=== PATIENT | male | born 1995 | race Caucasian/White ===

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

== ENCOUNTER 2018-10-14 21:18 | Inpatient (IN) | payer MEDICAID ==
[~2018-10-14] VITALS: Ht 182.9 cm; Wt 68.5 kg
[2018-10-14 22:13] LABS: BASOPHILS % (AUTO) 0.4 % (0.0-2.0); EOSINOPHILS % (AUTO) 0.5 % (1.0-6.0); HEMATOCRIT 49.4 % (41-53); HEMOGLOBIN 16.2 g/dL (13.5-17.5); LYMPHOCYTES # (AUTO) 2.2 K/uL (1.0-4.8); MEAN CORPUSCULAR HEMOGLOBIN 31.1 pg (26.0-34.0); MEAN CORPUSCULAR HGB CONC 32.8 G/dL (31.0-37.0); MEAN CORPUSCULAR VOLUME 95 fL (80-100); MONOCYTES % (AUTO) 8.8 % (2.0-9.0); NEUTROPHILS # (AUTO) 7.7 K/uL (1.8-7.7); NEUTROPHILS % (AUTO) 70.3 % (40.0-70.0); PLATELET COUNT (AUTO) 199 K/uL (150-450); RED CELL DISTRIBUTION WIDTH 13.3 % (11.5-14.5)
[2018-10-14 22:27] LABS: ANION GAP 14 mmol/L (8-16); CARBON DIOXIDE 25 mmol/L (22-29); CHLORIDE 100 mmol/L (98-107); CREATININE 1.38 mg/dL (0.60-1.30); GLOMERULAR FILTR. RATE CALC > 60 mL/min (>60); GLUCOSE,RANDOM 87 mg/dL (70-110); POTASSIUM 3.9 mmol/L (3.5-5.1); SODIUM SERUM 139 mmol/L (136-145); UREA NITROGEN, BLOOD 20 mg/dL (7-18)
[2018-10-14 22:33] LABS: ALANINE AMINOTRANSFERASE 22 U/L (12-78); ALBUMIN 4.8 g/dL (3.4-5.0); ALKALINE PHOSPHATASE 59 U/L (46-116); ASPARTATE AMINOTRANSFERASE 28 U/L (15-37); BILIRUBIN,TOTAL 1.2 mg/dL (0.1-1.0)
[2018-10-14 23:16] LABS: AMPHET/METH SCREEN,URINE POSITIVE (NEGATIVE); BARBITURATE SCREEN, URINE NEGATIVE (NEGATIVE); BENZODIAZEPINES SCREEN,URINE NEGATIVE (NEGATIVE); CANNABINOID SCREEN,URINE POSITIVE (NEGATIVE); COCAINE SCREEN,URINE POSITIVE (NEGATIVE); METHADONE SCREEN, URINE NEGATIVE (NEGATIVE); OPIATE SCREEN,URINE NEGATIVE (NEGATIVE); PHENCYCLIDINE SCREEN,URINE NEGATIVE (NEGATIVE)
[2018-10-15 03:29] LABS: APPEARANCE,URINE CLOUDY (CLEAR); GLUCOSE, URINE (UA) NEGATIVE (NEGATIVE); KETONES,URINE >=80 mg/dL (NEGATIVE); LEUKOCYTE ESTERASE ,URINE NEGATIVE (NEGATIVE); NITRATE,URINE NEGATIVE (NEGATIVE); OCCULT BLOOD,URINE NEGATIVE (NEGATIVE); PROTEIN,URINE SEE CONFIRM (NEGATIVE); UROBILINOGEN,URINE 0.2 mg/dL (<=1.0)
[2018-10-15 03:31] LABS: BILIRUBIN,URINE PRELIM. POSITIVE (NEGATIVE)
[2018-10-15 03:35] LABS: SULFOSALICYLIC ACID,URINE 1+ (Negative)
[2018-10-15 03:36] LABS: BACTERIA,URINE Rare /HPF (None Seen); MUCUS,URINE Few LPF (None Seen); RBC,URINE 0-2 /HPF (0-2); SQUAMOUS EPITHELIAL CELL,UR Rare /LPF (None Seen); WBC,URINE 0-2 /HPF (0-5)
[2018-10-15 05:42] VITALS: BP 129/78
[2018-10-15] MEDS: LORazepam 2 MG TABLET PO PRN ×2 (07:10→21:13)
[2018-10-15 08:38] VITALS: BP 118/90
[2018-10-15] MEDS: HALOPERIDOL 5 MG TABLET PO PRN (09:27)
[2018-10-15 16:13] VITALS: BP 110/68
[2018-10-15] MEDS ORDERED: OMEPRAZOLE 20 MG CAPSULE PO PRN (22:15)
[2018-10-15] MEDS ORDERED: ALBUTEROL SULFATE HFA 90 MCG/PUFF 8 GM INHALER IH PRN (22:15)
[2018-10-15] MEDS ORDERED: PETROLATUM,WHITE 28 GM JELLY TP PRN (22:15)
[2018-10-15] MEDS ORDERED: MAG HYDROX/AL HYDROX/SIMETH ES 30 ML SUSPENSION UDCUP PO PRN (22:15)
[2018-10-15] MEDS ORDERED: BENZOCAINE/MENTHOL LOZENGE MM PRN (22:15)
[2018-10-15] MEDS ORDERED: ONDANSETRON HCL 4 MG TABLET PO PRN (22:15)
[2018-10-15] MEDS ORDERED: BACITRACIN 28.4 GM OINTMENT TP PRN (22:15)
[2018-10-15] MEDS ORDERED: ACETAMINOPHEN 325 MG TABLET PO PRN (22:15)
[2018-10-15] MEDS ORDERED: DOCUSATE SODIUM 100 MG CAPSULE PO PRN (22:15)
[2018-10-15] MEDS ORDERED: LOPERAMIDE HCL 2 MG CAPSULE PO PRN (22:15)
[2018-10-15] MEDS ORDERED: IBUPROFEN 600 MG TABLET PO PRN (22:15)
[2018-10-15] MEDS ORDERED: CloNIDine HCL 0.1 MG TABLET PO PRN (22:15)
[2018-10-15] MEDS ORDERED: MAGNESIUM HYDROXIDE SUSPENSION 30 ML UDCUP PO PRN (22:15)
[2018-10-16 03:40] VITALS: BP 112/70
[2018-10-16] MEDS: ZOLPIDEM TARTRATE 10 MG TABLET PO PRN (03:44)
[2018-10-16 08:31] LABS: CHOL/HDL RATIO 3.3 (4.2-7.3)
[2018-10-16 08:32] VITALS: BP 100/60
[2018-10-16] MEDS: DIVALPROEX SODIUM 500 MG DR TABLET PO SCH ×3 (08:46→16:39)
[2018-10-16] MEDS: RisperiDONE 1 MG TABLET PO SCH ×3 (08:46→16:39)
[2018-10-16] MEDS: LORazepam 2 MG TABLET PO PRN ×2 (09:04→16:39)
[2018-10-16 16:35] VITALS: BP 116/74
[2018-10-16] MEDS: HALOPERIDOL 5 MG TABLET PO PRN (16:39)
[2018-10-17 00:17] VITALS: BP 126/78
[2018-10-17] MEDS: LORazepam 2 MG TABLET PO PRN ×3 (06:37→16:50)
[2018-10-17 08:35] VITALS: BP 101/60
[2018-10-17] MEDS: RisperiDONE 1 MG TABLET PO SCH ×2 (08:57→16:01)
[2018-10-17] MEDS: DIVALPROEX SODIUM 500 MG DR TABLET PO SCH ×2 (08:57→16:00)
[2018-10-17 16:00] VITALS: BP 119/65
[2018-10-18 06:20] VITALS: BP 107/69
[2018-10-18] MEDS: DIVALPROEX SODIUM 500 MG DR TABLET PO SCH ×2 (08:07→16:34)
[2018-10-18] MEDS: LORazepam 2 MG TABLET PO PRN ×2 (08:07→12:25)
[2018-10-18] MEDS: RisperiDONE 1 MG TABLET PO SCH ×2 (08:07→16:34)
[2018-10-18 08:39] VITALS: BP 109/61
[2018-10-18] MEDS: NICOTINE 21 MG/24 HOUR PATCH TD PRN (16:34)
[2018-10-18 17:03] VITALS: BP 122/75
[2018-10-18] MEDS: LORazepam 1 MG TABLET PO PRN (18:29)
[2018-10-18] MEDS: ZOLPIDEM TARTRATE 10 MG TABLET PO PRN (21:15)
[2018-10-19 04:55] VITALS: BP 111/70
[2018-10-19] MEDS: LORazepam 1 MG TABLET PO PRN ×2 (05:02→10:59)
[2018-10-19] MEDS: RisperiDONE 1 MG TABLET PO SCH (08:08)
[2018-10-19] MEDS: DIVALPROEX SODIUM 500 MG DR TABLET PO SCH (08:08)
[2018-10-19 08:18] LABS: ANION GAP 6 mmol/L (8-16); CALCIUM, TOTAL 9.4 mg/dL (8.8-10.5); CARBON DIOXIDE 29 mmol/L (22-29); CHLORIDE 105 mmol/L (98-107); CREATININE 1.03 mg/dL (0.60-1.30); GLOMERULAR FILTR. RATE CALC > 60 mL/min (>60); GLUCOSE,RANDOM 118 mg/dL (70-110); POTASSIUM 4.1 mmol/L (3.5-5.1); SODIUM SERUM 140 mmol/L (136-145); UREA NITROGEN, BLOOD 12 mg/dL (7-18)
[2018-10-19] MEDS: NICOTINE 21 MG/24 HOUR PATCH TD PRN (08:19)
[2018-10-19 08:41] VITALS: BP 139/72
[2018-10-19] MEDS ORDERED: RISP1 PO (11:10)
[2018-10-19] MEDS ORDERED: DIVA-78 PO (11:10)
== END 2018-10-19 13:48 | disposition home or self-care (01) | DRG 753 ==
LOC: EMS 21:23 → B2S 10-15 02:00
PROVIDERS: ADMIT Psychiatry & Neurology Psychiatry; ATTEND Psychiatry & Neurology Psychiatry
DX: F31.9 Bipolar disorder, unspecified (principal); F25.9 Schizoaffective disorder, unspecified; R45.851 Suicidal ideations; F41.9 Anxiety disorder, unspecified; G47.00 Insomnia, unspecified; N28.9 Disorder of kidney and ureter, unspecified; F17.210 Nicotine dependence, cigarettes, uncomplicated; F15.10 Other stimulant abuse, uncomplicated; F14.10 Cocaine abuse, uncomplicated; Z59.0 Homelessness
CPT/HCPCS: G0480

== ENCOUNTER 2018-10-30 19:13 | Inpatient (IN) | payer MEDICAID ==
[~2018-10-30] VITALS: Ht 182.9 cm; Wt 63.0 kg
[~2018-10-30 19:13] MED LIST: DIVA-78 PO; RISP1 PO
[2018-10-30 20:02] LABS: BASOPHILS % (AUTO) 0.2 % (0.0-2.0); EOSINOPHILS % (AUTO) 0.2 % (1.0-6.0); HEMATOCRIT 49.4 % (41-53); HEMOGLOBIN 16.3 g/dL (13.5-17.5); LYMPHOCYTES # (AUTO) 2.2 K/uL (1.0-4.8); LYMPHOCYTES % (AUTO) 16.7 % (22.0-44.0); MEAN CORPUSCULAR HEMOGLOBIN 30.5 pg (26.0-34.0); MEAN CORPUSCULAR VOLUME 92 fL (80-100); MONOCYTES # (AUTO) 1.2 K/uL (0.1-1.0); MONOCYTES % (AUTO) 8.9 % (2.0-9.0); NEUTROPHILS # (AUTO) 9.9 K/uL (1.8-7.7); PLATELET COUNT (AUTO) 224 K/uL (150-450); RED BLOOD CELL COUNT(AUTO) 5.35 MIL/uL (4.50-5.90); RED CELL DISTRIBUTION WIDTH 12.8 % (11.5-14.5)
[2018-10-30 20:18] LABS: ANION GAP 15 mmol/L (8-16); CARBON DIOXIDE 25 mmol/L (22-29); CHLORIDE 102 mmol/L (98-107); CREATININE 1.37 mg/dL (0.60-1.30); GLOMERULAR FILTR. RATE CALC > 60 mL/min (>60); GLUCOSE,RANDOM 82 mg/dL (70-110); POTASSIUM 3.5 mmol/L (3.5-5.1); SODIUM SERUM 142 mmol/L (136-145); UREA NITROGEN, BLOOD 17 mg/dL (7-18)
[2018-10-30 20:23] LABS: ALANINE AMINOTRANSFERASE 16 U/L (12-78); ALBUMIN 4.5 g/dL (3.4-5.0); ALKALINE PHOSPHATASE 62 U/L (46-116); ASPARTATE AMINOTRANSFERASE 20 U/L (15-37); BILIRUBIN,TOTAL 0.5 mg/dL (0.1-1.0); TOTAL PROTEIN, SERUM 7.8 g/dL (6.4-8.2)
[2018-10-30 21:28] LABS: APPEARANCE,URINE TURBID (CLEAR); BILIRUBIN,URINE NEGATIVE (NEGATIVE); GLUCOSE, URINE (UA) NEGATIVE (NEGATIVE); KETONES,URINE 15 mg/dL (NEGATIVE); LEUKOCYTE ESTERASE ,URINE TRACE (NEGATIVE); NITRATE,URINE NEGATIVE (NEGATIVE); OCCULT BLOOD,URINE NEGATIVE (NEGATIVE); PROTEIN,URINE TRACE (NEGATIVE)
[2018-10-30 21:35] LABS: BACTERIA,URINE None Seen /HPF (None Seen); RBC,URINE None Seen /HPF (0-2)
[2018-10-30 21:36] LABS: AMORPHOUS SEDIMENT,UR Many /LPF (None Seen); SQUAMOUS EPITHELIAL CELL,UR Rare /LPF (None Seen)
[2018-10-31 01:07] LABS: AMPHET/METH SCREEN,URINE POSITIVE (NEGATIVE); BARBITURATE SCREEN, URINE NEGATIVE (NEGATIVE); BENZODIAZEPINES SCREEN,URINE NEGATIVE (NEGATIVE); CANNABINOID SCREEN,URINE POSITIVE (NEGATIVE); COCAINE SCREEN,URINE NEGATIVE (NEGATIVE); METHADONE SCREEN, URINE NEGATIVE (NEGATIVE); OPIATE SCREEN,URINE NEGATIVE (NEGATIVE)
[2018-10-31 01:22] LABS: PHENCYCLIDINE SCREEN,URINE NEGATIVE (NEGATIVE)
[2018-10-31] MEDS: HALOPERIDOL 5 MG TABLET PO PRN ×2 (03:45→17:01)
[2018-10-31] MEDS: LORazepam 2 MG TABLET PO PRN ×2 (03:45→17:01)
[2018-10-31 03:51] VITALS: BP 126/65
[2018-10-31 08:47] VITALS: BP 107/60
[2018-10-31] MEDS ORDERED: MAGNESIUM HYDROXIDE SUSPENSION 30 ML UDCUP PO PRN (11:45)
[2018-10-31] MEDS ORDERED: CloNIDine HCL 0.1 MG TABLET PO PRN (11:45)
[2018-10-31] MEDS ORDERED: ACETAMINOPHEN 325 MG TABLET PO PRN (11:45)
[2018-10-31] MEDS ORDERED: LOPERAMIDE HCL 2 MG CAPSULE PO PRN (11:45)
[2018-10-31] MEDS ORDERED: BACITRACIN 28.4 GM OINTMENT TP PRN (11:45)
[2018-10-31] MEDS ORDERED: PETROLATUM,WHITE 28 GM JELLY TP PRN (11:45)
[2018-10-31] MEDS ORDERED: OMEPRAZOLE 20 MG CAPSULE PO PRN (11:45)
[2018-10-31] MEDS ORDERED: BENZOCAINE/MENTHOL LOZENGE MM PRN (11:45)
[2018-10-31] MEDS ORDERED: MAG HYDROX/AL HYDROX/SIMETH ES 30 ML SUSPENSION UDCUP PO PRN (11:45)
[2018-10-31] MEDS ORDERED: IBUPROFEN 600 MG TABLET PO PRN (11:45)
[2018-10-31] MEDS ORDERED: ONDANSETRON HCL 4 MG TABLET PO PRN (11:45)
[2018-10-31] MEDS ORDERED: DOCUSATE SODIUM 100 MG CAPSULE PO PRN (11:45)
[2018-10-31] MEDS ORDERED: ALBUTEROL SULFATE HFA 90 MCG/PUFF 8 GM INHALER IH PRN (11:45)
[2018-10-31 16:00] VITALS: BP 105/63
[2018-10-31] MEDS: DIVALPROEX SODIUM 500 MG DR TABLET PO SCH (17:01)
[2018-10-31] MEDS: RisperiDONE 2 MG TABLET PO SCH (17:01)
[2018-11-01 03:50] VITALS: BP 108/68
[2018-11-01 07:41] LABS: CHOL/HDL RATIO 3.2 (4.2-7.3); FREE T4 (FREE THYROXINE) 1.47 ng/dL (0.76-1.46); THYROID STIMULATING HORMONE 0.77 uIU/mL (0.36-3.74)
[2018-11-01] MEDS: RisperiDONE 2 MG TABLET PO SCH ×2 (08:22→16:53)
[2018-11-01] MEDS: DIVALPROEX SODIUM 500 MG DR TABLET PO SCH ×2 (08:22→16:53)
[2018-11-01 09:49] VITALS: BP 114/69
[2018-11-01] MEDS: LORazepam 2 MG TABLET PO PRN ×2 (09:49→16:53)
[2018-11-01] MEDS: HALOPERIDOL 5 MG TABLET PO PRN ×2 (09:49→16:53)
[2018-11-01 16:10] VITALS: BP 116/72
[2018-11-02 06:41] VITALS: BP 124/76
[2018-11-02 08:27] VITALS: BP 112/60
[2018-11-02] MEDS: RisperiDONE 2 MG TABLET PO SCH ×2 (09:41→16:57)
[2018-11-02] MEDS: DIVALPROEX SODIUM 500 MG DR TABLET PO SCH ×2 (09:41→16:58)
[2018-11-02] MEDS: LORazepam 2 MG TABLET PO PRN ×2 (09:41→16:58)
[2018-11-02] MEDS ORDERED: *PATIENT'S OWN MED [ENTER DRUG, DOSE, FREQUENCY IN COMMENTS] CLINICAL ONE (14:00)
[2018-11-02 16:00] VITALS: BP 114/66
[2018-11-02] MEDS: HALOPERIDOL 5 MG TABLET PO PRN (16:58)
[2018-11-02] MEDS: ZOLPIDEM TARTRATE 10 MG TABLET PO PRN (20:54)
[2018-11-02] MEDS: [UNRECOGNIZED DRUG - OTHER] PO SCH (21:14)
[2018-11-03 06:43] VITALS: BP 110/63
[2018-11-03 08:07] VITALS: BP 117/55
[2018-11-03] MEDS: [UNRECOGNIZED DRUG - OTHER] PO SCH (08:26)
[2018-11-03] MEDS: RisperiDONE 2 MG TABLET PO SCH ×2 (08:26→16:07)
[2018-11-03] MEDS: DIVALPROEX SODIUM 500 MG DR TABLET PO SCH ×2 (08:26→16:07)
[2018-11-03] MEDS: LORazepam 2 MG TABLET PO PRN ×2 (16:07→20:13)
[2018-11-03] MEDS: HALOPERIDOL 5 MG TABLET PO PRN (16:08)
[2018-11-03 16:09] VITALS: BP 139/76
[2018-11-03] MEDS: ZOLPIDEM TARTRATE 10 MG TABLET PO PRN (20:13)
[2018-11-03] MEDS: NICOTINE 21 MG/24 HOUR PATCH TD SCH (21:22)
[2018-11-04 06:12] VITALS: BP 122/71
[2018-11-04 08:13] VITALS: BP 123/61
[2018-11-04] MEDS: RisperiDONE 2 MG TABLET PO SCH ×2 (08:23→16:51)
[2018-11-04] MEDS: [UNRECOGNIZED DRUG - OTHER] PO SCH (08:23)
[2018-11-04] MEDS: NICOTINE 21 MG/24 HOUR PATCH TD SCH (08:23)
[2018-11-04] MEDS: DIVALPROEX SODIUM 500 MG DR TABLET PO SCH ×2 (08:24→16:51)
[2018-11-04] MEDS: LORazepam 2 MG TABLET PO PRN ×2 (12:41→16:51)
[2018-11-04 16:00] VITALS: BP 107/65
[2018-11-04] MEDS: HALOPERIDOL 5 MG TABLET PO PRN (16:51)
[2018-11-05 06:07] VITALS: BP 114/73
[2018-11-05] MEDS: DIVALPROEX SODIUM 500 MG DR TABLET PO SCH ×2 (08:19→16:17)
[2018-11-05] MEDS: NICOTINE 21 MG/24 HOUR PATCH TD SCH (08:19)
[2018-11-05] MEDS: RisperiDONE 2 MG TABLET PO SCH ×2 (08:19→16:17)
[2018-11-05] MEDS: [UNRECOGNIZED DRUG - OTHER] PO SCH (08:20)
[2018-11-05] MEDS: LORazepam 2 MG TABLET PO PRN ×3 (10:53→20:43)
[2018-11-05] MEDS: ZOLPIDEM TARTRATE 10 MG TABLET PO PRN (20:43)
[2018-11-06 03:59] VITALS: BP 116/72
[2018-11-06] MEDS: LORazepam 2 MG TABLET PO PRN (04:01)
[2018-11-06] MEDS: [UNRECOGNIZED DRUG - OTHER] PO SCH (08:15)
[2018-11-06] MEDS: NICOTINE 21 MG/24 HOUR PATCH TD SCH (08:15)
[2018-11-06] MEDS: DIVALPROEX SODIUM 500 MG DR TABLET PO SCH (08:15)
[2018-11-06] MEDS: RisperiDONE 2 MG TABLET PO SCH (08:15)
[2018-11-06 08:32] VITALS: BP 127/87
[2018-11-06] MEDS ORDERED: RISP2 PO (13:57)
[2018-11-06] MEDS ORDERED: DIVA-78 PO (13:57)
[2018-11-06] MEDS ORDERED: BICT1TAB PO (13:57)
== END 2018-11-06 14:45 | disposition home or self-care (01) | DRG 754 ==
LOC: EMS 19:13 → B3A 10-31 01:00
PROVIDERS: ADMIT Psychiatry & Neurology Child & Adolescent Psychiatry; ATTEND Psychiatry & Neurology Psychiatry
DX: F32.9 Major depressive disorder, single episode, unspecified (principal); D72.829 Elevated white blood cell count, unspecified; F12.90 Cannabis use, unspecified, uncomplicated; F17.210 Nicotine dependence, cigarettes, uncomplicated; F41.9 Anxiety disorder, unspecified; G47.00 Insomnia, unspecified; N28.9 Disorder of kidney and ureter, unspecified; F15.10 Other stimulant abuse, uncomplicated; F14.10 Cocaine abuse, uncomplicated; Z71.51 Drug abuse counseling and surveillance of drug abuser
CPT/HCPCS: 84436; 84439; 84443; 87081; G0480

== ENCOUNTER 2020-12-31 09:57 | Inpatient (IN) | payer MEDICAID, OTHER ==
[~2020-12-31] VITALS: Ht 177.8 cm; Wt 76.4 kg
[~2020-12-31 09:57] MED LIST changes: +BICT1TAB PO; +DIVA-112 PO; -DIVA-78 PO; -RISP1 PO; +RISP2TAB45 PO
[2020-12-31 10:32] LABS: COVID AG,FIA SOURCE NASOPHARYNGEAL
[2020-12-31 10:35] LABS: BASOPHILS % (AUTO) 0.3 % (0.0-2.0); EOSINOPHILS % (AUTO) 0.8 % (1.0-6.0); HEMATOCRIT 48.1 % (41-53); LYMPHOCYTES % (AUTO) 27.4 % (22.0-44.0); MEAN CORPUSCULAR HEMOGLOBIN 30.5 pg (26.0-34.0); MEAN CORPUSCULAR HGB CONC 33.4 G/dL (31.0-37.0); MEAN CORPUSCULAR VOLUME 92 fL (80-100); MONOCYTES # (AUTO) 0.5 K/uL (0.1-1.0); MONOCYTES % (AUTO) 7.3 % (2.0-9.0); NEUTROPHILS # (AUTO) 4.7 K/uL (1.8-7.7); NEUTROPHILS % (AUTO) 64.2 % (40.0-70.0); PLATELET COUNT (AUTO) 188 K/uL (150-450); RED BLOOD CELL COUNT(AUTO) 5.25 MIL/uL (4.50-5.90); RED CELL DISTRIBUTION WIDTH 14.2 % (11.5-14.5)
[2020-12-31 10:44] LABS: ANION GAP 4 mmol/L (8-16); CALCIUM, TOTAL 8.7 mg/dL (8.8-10.5); CARBON DIOXIDE 29 mmol/L (22-29); CHLORIDE 105 mmol/L (98-107); CREATININE 1.01 mg/dL (0.60-1.30); GLOMERULAR FILTR. RATE CALC > 60 mL/min (>60); GLUCOSE,RANDOM 103 mg/dL (70-110); POTASSIUM 4.5 mmol/L (3.5-5.1); SODIUM SERUM 138 mmol/L (136-145); UREA NITROGEN, BLOOD 17 mg/dL (7-18)
[2020-12-31 10:50] LABS: ALANINE AMINOTRANSFERASE 27 U/L (12-78); ALBUMIN 4.2 g/dL (3.4-5.0); ALKALINE PHOSPHATASE 95 U/L (46-116); ASPARTATE AMINOTRANSFERASE 17 U/L (15-37); BILIRUBIN,TOTAL 0.3 mg/dL (0.1-1.0); TOTAL PROTEIN, SERUM 7.8 g/dL (6.4-8.2)
[2020-12-31 10:51] LABS: VALPROIC ACID < 3 mcg/mL (50-100)
[2020-12-31 12:37] LABS: AMPHET/METH SCREEN,URINE NEGATIVE (NEGATIVE); BARBITURATE SCREEN, URINE NEGATIVE (NEGATIVE); BENZODIAZEPINES SCREEN,URINE NEGATIVE (NEGATIVE); CANNABINOID SCREEN,URINE POSITIVE (NEGATIVE); COCAINE SCREEN,URINE NEGATIVE (NEGATIVE); METHADONE SCREEN, URINE NEGATIVE (NEGATIVE); OPIATE SCREEN,URINE NEGATIVE (NEGATIVE)
[2020-12-31 12:40] LABS: PHENCYCLIDINE SCREEN,URINE NEGATIVE (NEGATIVE)
[2020-12-31] MEDS ORDERED: LORazepam 2 MG TABLET PO PRN (12:45)
[2020-12-31] MEDS: ZOLPIDEM TARTRATE 10 MG TABLET PO PRN (20:05)
[2020-12-31 20:18] VITALS: BP 121/74
[2020-12-31] MEDS ORDERED: PNEUMOCOCCAL VACCINE POLYVALENT 0.5 ML VIAL [PPSV23] IM. ONE (23:45)
[2021-01-01 01:01] VITALS: BP 135/81
[2021-01-01 08:00] VITALS: BP 127/73
[2021-01-01] MEDS: BICTEGRAV/EMTRICIT/TENOFOV ALA 50-200-25 MG TABLET PO SCH (08:32)
[2021-01-01 08:33] LABS: CHOL/HDL RATIO 3.4 (4.2-7.3)
[2021-01-01] MEDS: NICOTINE 14 MG/24 HOUR PATCH TD SCH (08:33)
[2021-01-01] MEDS ORDERED: FLUO20CA36 PO (09:56)
[2021-01-01] MEDS ORDERED: QUET200T30 PO (09:56)
[2021-01-01] MEDS ORDERED: PROP10TA72 PO (09:56)
[2021-01-01] MEDS ORDERED: QUET25TA36 PO (09:56)
[2021-01-01] MEDS: QUEtiapine FUMARATE 25 MG TABLET PO SCH ×2 (10:40→16:55)
[2021-01-01] MEDS: PROPRANOLOL HCL 10 MG TABLET PO SCH (10:40)
[2021-01-01] MEDS: FLUoxetine HCL 20 MG CAPSULE PO SCH (10:40)
[2021-01-01] MEDS ORDERED: GuaiFENesin/D-METHORPHAN [SUGAR-FREE] 200-20MG/10 ML SYRUP UDCUP PO PRN (13:15)
[2021-01-01] MEDS ORDERED: ACETAMINOPHEN 325 MG TABLET PO PRN (13:15)
[2021-01-01] MEDS ORDERED: PETROLATUM,WHITE 28 GM JELLY TP PRN (13:15)
[2021-01-01] MEDS ORDERED: ALBUTEROL SULFATE HFA 90 MCG/PUFF 8 GM INHALER IH PRN (13:15)
[2021-01-01] MEDS ORDERED: ONDANSETRON HCL 4 MG TABLET PO PRN (13:15)
[2021-01-01] MEDS ORDERED: CloNIDine HCL 0.1 MG TABLET PO PRN (13:15)
[2021-01-01] MEDS ORDERED: MAGNESIUM HYDROXIDE SUSPENSION 30 ML UDCUP PO PRN (13:15)
[2021-01-01] MEDS ORDERED: MAG HYDROX/AL HYDROX/SIMETH ES 30 ML SUSPENSION UDCUP PO PRN (13:15)
[2021-01-01] MEDS ORDERED: LOPERAMIDE HCL 2 MG CAPSULE PO PRN (13:15)
[2021-01-01] MEDS ORDERED: NICOTINE 14 MG/24 HOUR PATCH TD PRN (13:15)
[2021-01-01] MEDS ORDERED: IBUPROFEN 400 MG TABLET PO PRN (13:15)
[2021-01-01] MEDS ORDERED: DOCUSATE SODIUM 100 MG CAPSULE PO PRN (13:15)
[2021-01-01 16:08] VITALS: BP 124/64
[2021-01-01] MEDS: ZOLPIDEM TARTRATE 10 MG TABLET PO PRN (20:33)
[2021-01-01] MEDS: QUEtiapine FUMARATE 200 MG TABLET PO SCH (20:33)
[2021-01-02 00:14] VITALS: BP 120/66
[2021-01-02] MEDS: FLUoxetine HCL 20 MG CAPSULE PO SCH (08:15)
[2021-01-02] MEDS: BICTEGRAV/EMTRICIT/TENOFOV ALA 50-200-25 MG TABLET PO SCH (08:15)
[2021-01-02] MEDS: PROPRANOLOL HCL 10 MG TABLET PO SCH (08:15)
[2021-01-02] MEDS: QUEtiapine FUMARATE 25 MG TABLET PO SCH ×2 (08:16→16:47)
[2021-01-02] MEDS: NICOTINE 14 MG/24 HOUR PATCH TD SCH (08:16)
[2021-01-02] MEDS: LORazepam 2 MG TABLET PO PRN ×3 (08:22→16:47)
[2021-01-02 11:01] VITALS: BP 116/66
[2021-01-02 16:14] VITALS: BP 121/77
[2021-01-02] MEDS: ZOLPIDEM TARTRATE 10 MG TABLET PO PRN (20:22)
[2021-01-02] MEDS: QUEtiapine FUMARATE 200 MG TABLET PO SCH (20:22)
[2021-01-03 00:21] VITALS: BP 118/72
[2021-01-03 08:14] VITALS: BP 108/60
[2021-01-03] MEDS: NICOTINE 14 MG/24 HOUR PATCH TD SCH (09:34)
[2021-01-03] MEDS: FLUoxetine HCL 20 MG CAPSULE PO SCH (09:35)
[2021-01-03] MEDS: PROPRANOLOL HCL 10 MG TABLET PO SCH (09:36)
[2021-01-03] MEDS: QUEtiapine FUMARATE 25 MG TABLET PO SCH ×2 (09:36→16:27)
[2021-01-03] MEDS: BICTEGRAV/EMTRICIT/TENOFOV ALA 50-200-25 MG TABLET PO SCH (09:36)
[2021-01-03] MEDS: LORazepam 1 MG TABLET PO PRN ×3 (09:45→17:52)
[2021-01-03 16:12] VITALS: BP 135/82
[2021-01-03] MEDS: QUEtiapine FUMARATE 200 MG TABLET PO SCH (20:51)
[2021-01-03] MEDS: ZOLPIDEM TARTRATE 10 MG TABLET PO PRN (20:51)
[2021-01-04 00:16] VITALS: BP 132/79
[2021-01-04 08:15] VITALS: BP 107/64
[2021-01-04] MEDS: NICOTINE 14 MG/24 HOUR PATCH TD SCH (08:39)
[2021-01-04] MEDS: BICTEGRAV/EMTRICIT/TENOFOV ALA 50-200-25 MG TABLET PO SCH (08:39)
[2021-01-04] MEDS: PROPRANOLOL HCL 10 MG TABLET PO SCH (08:40)
[2021-01-04] MEDS: FLUoxetine HCL 20 MG CAPSULE PO SCH (08:40)
[2021-01-04] MEDS: QUEtiapine FUMARATE 25 MG TABLET PO SCH ×2 (08:44→16:58)
[2021-01-04] MEDS: LORazepam 1 MG TABLET PO PRN ×3 (08:45→17:49)
[2021-01-04] MEDS: HALOPERIDOL 5 MG TABLET PO PRN (13:35)
[2021-01-04 16:24] VITALS: BP 103/64
[2021-01-04] MEDS: ZOLPIDEM TARTRATE 10 MG TABLET PO PRN (20:44)
[2021-01-04] MEDS: QUEtiapine FUMARATE 200 MG TABLET PO SCH (20:44)
[2021-01-05 06:24] VITALS: BP 114/69
[2021-01-05 08:23] VITALS: BP 114/65
[2021-01-05] MEDS: PROPRANOLOL HCL 10 MG TABLET PO SCH (08:27)
[2021-01-05] MEDS: FLUoxetine HCL 20 MG CAPSULE PO SCH (08:27)
[2021-01-05] MEDS: BICTEGRAV/EMTRICIT/TENOFOV ALA 50-200-25 MG TABLET PO SCH (08:27)
[2021-01-05] MEDS: LORazepam 1 MG TABLET PO PRN (08:27)
[2021-01-05] MEDS: QUEtiapine FUMARATE 25 MG TABLET PO SCH ×2 (09:12→16:07)
[2021-01-05] MEDS: NICOTINE 14 MG/24 HOUR PATCH TD SCH (09:16)
[2021-01-05] MEDS ORDERED: HALOPERIDOL LACTATE 5 MG/ML VIAL ONE (11:36)
[2021-01-05] MEDS ORDERED: LORazepam 2 MG/ML VIAL ONE (11:36)
[2021-01-05] MEDS ORDERED: DiphenhydrAMINE HCL 50 MG/ML VIAL ONE (11:37)
[2021-01-05] MEDS ORDERED: DiphenhydrAMINE HCL 50 MG/ML VIAL IM ONE (11:45)
[2021-01-05] MEDS ORDERED: LORazepam 2 MG/ML VIAL IM ONE (11:45)
[2021-01-05] MEDS ORDERED: HALOPERIDOL LACTATE 5 MG/ML VIAL IM ONE (11:45)
[2021-01-05] MEDS: QUEtiapine FUMARATE 200 MG TABLET PO SCH (20:52)
[2021-01-05] MEDS: ZOLPIDEM TARTRATE 10 MG TABLET PO PRN (21:08)
[2021-01-06 00:31] VITALS: BP 113/75
[2021-01-06] MEDS: NICOTINE 14 MG/24 HOUR PATCH TD SCH (08:00)
[2021-01-06] MEDS: PROPRANOLOL HCL 10 MG TABLET PO SCH (08:01)
[2021-01-06] MEDS: QUEtiapine FUMARATE 25 MG TABLET PO SCH ×2 (08:01→16:28)
[2021-01-06] MEDS: FLUoxetine HCL 20 MG CAPSULE PO SCH (08:01)
[2021-01-06] MEDS: LORazepam 1 MG TABLET PO PRN ×2 (08:01→16:28)
[2021-01-06] MEDS: MULTIVITAMINS WITH MINERALS, THERAPEUTIC TABLET PO SCH (08:01)
[2021-01-06 08:17] VITALS: BP 128/70
[2021-01-06] MEDS: BICTEGRAV/EMTRICIT/TENOFOV ALA 50-200-25 MG TABLET PO SCH (08:55)
[2021-01-06] MEDS: HALOPERIDOL 5 MG TABLET PO PRN ×2 (08:56→16:28)
[2021-01-06 16:27] VITALS: BP 107/62
[2021-01-06] MEDS: ZOLPIDEM TARTRATE 10 MG TABLET PO PRN (20:35)
[2021-01-06] MEDS: QUEtiapine FUMARATE 200 MG TABLET PO SCH (20:35)
[2021-01-07 06:29] VITALS: BP 110/68
[2021-01-07 07:47] LABS: COVID AG,FIA SOURCE NASAL SWAB
[2021-01-07] MEDS: QUEtiapine FUMARATE 25 MG TABLET PO SCH ×2 (08:17→16:26)
[2021-01-07] MEDS: PROPRANOLOL HCL 10 MG TABLET PO SCH (08:17)
[2021-01-07] MEDS: BICTEGRAV/EMTRICIT/TENOFOV ALA 50-200-25 MG TABLET PO SCH (08:17)
[2021-01-07] MEDS: MULTIVITAMINS WITH MINERALS, THERAPEUTIC TABLET PO SCH (08:17)
[2021-01-07] MEDS: FLUoxetine HCL 20 MG CAPSULE PO SCH (08:17)
[2021-01-07] MEDS: LORazepam 1 MG TABLET PO PRN ×3 (08:18→17:53)
[2021-01-07] MEDS: NICOTINE 14 MG/24 HOUR PATCH TD SCH (08:18)
[2021-01-07] MEDS: HALOPERIDOL 5 MG TABLET PO PRN ×3 (08:18→17:53)
[2021-01-07 08:20] VITALS: BP 126/82
[2021-01-07 16:39] VITALS: BP 121/69
[2021-01-07] MEDS: QUEtiapine FUMARATE 200 MG TABLET PO SCH (20:43)
[2021-01-07] MEDS: ZOLPIDEM TARTRATE 10 MG TABLET PO PRN (20:44)
[2021-01-08 07:10] VITALS: BP 118/70
[2021-01-08] MEDS: BICTEGRAV/EMTRICIT/TENOFOV ALA 50-200-25 MG TABLET PO SCH (07:56)
[2021-01-08] MEDS: QUEtiapine FUMARATE 25 MG TABLET PO SCH ×2 (07:57→16:30)
[2021-01-08] MEDS: FLUoxetine HCL 20 MG CAPSULE PO SCH (07:57)
[2021-01-08] MEDS: MULTIVITAMINS WITH MINERALS, THERAPEUTIC TABLET PO SCH (07:57)
[2021-01-08] MEDS: PROPRANOLOL HCL 10 MG TABLET PO SCH (07:57)
[2021-01-08] MEDS: NICOTINE 14 MG/24 HOUR PATCH TD SCH (07:58)
[2021-01-08] MEDS: HALOPERIDOL 5 MG TABLET PO PRN ×3 (08:03→16:59)
[2021-01-08] MEDS: LORazepam 1 MG TABLET PO PRN ×3 (08:03→16:59)
[2021-01-08 08:36] VITALS: BP 113/71
[2021-01-08 16:10] VITALS: BP 106/62
[2021-01-08] MEDS: QUEtiapine FUMARATE 200 MG TABLET PO SCH (20:58)
[2021-01-08] MEDS: ZOLPIDEM TARTRATE 10 MG TABLET PO PRN (21:38)
[2021-01-09 00:52] VITALS: BP 110/64
[2021-01-09] MEDS: QUEtiapine FUMARATE 25 MG TABLET PO SCH ×2 (08:17→16:39)
[2021-01-09] MEDS: MULTIVITAMINS WITH MINERALS, THERAPEUTIC TABLET PO SCH (08:17)
[2021-01-09] MEDS: FLUoxetine HCL 20 MG CAPSULE PO SCH (08:17)
[2021-01-09] MEDS: PROPRANOLOL HCL 10 MG TABLET PO SCH (08:17)
[2021-01-09] MEDS: NICOTINE 14 MG/24 HOUR PATCH TD SCH (08:17)
[2021-01-09] MEDS: BICTEGRAV/EMTRICIT/TENOFOV ALA 50-200-25 MG TABLET PO SCH (08:17)
[2021-01-09] MEDS: HALOPERIDOL 5 MG TABLET PO PRN ×2 (08:18→17:12)
[2021-01-09] MEDS: LORazepam 1 MG TABLET PO PRN ×2 (08:18→17:12)
[2021-01-09 08:30] VITALS: BP 111/60
[2021-01-09 16:07] VITALS: BP 105/65
[2021-01-09] MEDS: ZOLPIDEM TARTRATE 10 MG TABLET PO PRN (20:47)
[2021-01-09] MEDS: QUEtiapine FUMARATE 200 MG TABLET PO SCH (20:47)
[2021-01-10 05:53] VITALS: BP 126/76
[2021-01-10] MEDS: NICOTINE 14 MG/24 HOUR PATCH TD SCH (08:10)
[2021-01-10] MEDS: BICTEGRAV/EMTRICIT/TENOFOV ALA 50-200-25 MG TABLET PO SCH (08:10)
[2021-01-10] MEDS: MULTIVITAMINS WITH MINERALS, THERAPEUTIC TABLET PO SCH (08:11)
[2021-01-10] MEDS: FLUoxetine HCL 20 MG CAPSULE PO SCH (08:11)
[2021-01-10] MEDS: PROPRANOLOL HCL 10 MG TABLET PO SCH (08:12)
[2021-01-10] MEDS: QUEtiapine FUMARATE 25 MG TABLET PO SCH ×2 (08:13→16:42)
[2021-01-10] MEDS: HALOPERIDOL 5 MG TABLET PO PRN ×3 (08:19→16:43)
[2021-01-10] MEDS: LORazepam 1 MG TABLET PO PRN ×3 (08:19→16:43)
[2021-01-10 09:32] VITALS: BP 110/64
[2021-01-10 16:25] VITALS: BP 108/67
[2021-01-10] MEDS: ZOLPIDEM TARTRATE 10 MG TABLET PO PRN (20:41)
[2021-01-10] MEDS: QUEtiapine FUMARATE 200 MG TABLET PO SCH (20:41)
[2021-01-11 06:08] VITALS: BP 112/58
[2021-01-11] MEDS: FLUoxetine HCL 20 MG CAPSULE PO SCH (08:19)
[2021-01-11] MEDS: QUEtiapine FUMARATE 25 MG TABLET PO SCH ×2 (08:20→16:06)
[2021-01-11] MEDS: MULTIVITAMINS WITH MINERALS, THERAPEUTIC TABLET PO SCH (08:20)
[2021-01-11] MEDS: BICTEGRAV/EMTRICIT/TENOFOV ALA 50-200-25 MG TABLET PO SCH (08:20)
[2021-01-11] MEDS: PROPRANOLOL HCL 10 MG TABLET PO SCH (08:20)
[2021-01-11] MEDS: LORazepam 1 MG TABLET PO PRN ×2 (08:21→15:54)
[2021-01-11] MEDS: HALOPERIDOL 5 MG TABLET PO PRN ×2 (08:21→15:54)
[2021-01-11 08:24] VITALS: BP 104/60
[2021-01-11] MEDS: NICOTINE 14 MG/24 HOUR PATCH TD SCH (09:07)
[2021-01-11 16:09] VITALS: BP 113/62
[2021-01-11] MEDS: QUEtiapine FUMARATE 200 MG TABLET PO SCH (20:18)
[2021-01-11] MEDS: ZOLPIDEM TARTRATE 10 MG TABLET PO PRN (20:18)
[2021-01-12 05:39] VITALS: BP 104/65
[2021-01-12] MEDS: HALOPERIDOL 5 MG TABLET PO PRN ×3 (06:59→11:00)
[2021-01-12] MEDS: LORazepam 1 MG TABLET PO PRN ×3 (06:59→11:00)
[2021-01-12] MEDS: QUEtiapine FUMARATE 25 MG TABLET PO SCH (08:30)
[2021-01-12] MEDS: FLUoxetine HCL 20 MG CAPSULE PO SCH (08:30)
[2021-01-12] MEDS: NICOTINE 14 MG/24 HOUR PATCH TD SCH (08:30)
[2021-01-12] MEDS: BICTEGRAV/EMTRICIT/TENOFOV ALA 50-200-25 MG TABLET PO SCH (08:30)
[2021-01-12] MEDS: PROPRANOLOL HCL 10 MG TABLET PO SCH (08:31)
[2021-01-12] MEDS: MULTIVITAMINS WITH MINERALS, THERAPEUTIC TABLET PO SCH (08:31)
[2021-01-12 08:48] VITALS: BP 107/64
== END 2021-01-12 15:45 | disposition home or self-care (01) | DRG 750 ==
LOC: EMS 09:57 → B3A 17:26
PROVIDERS: ADMIT Psychiatry & Neurology Psychiatry; ATTEND Psychiatry & Neurology Psychiatry
DX: F25.0 Schizoaffective disorder, bipolar type (principal); R45.850 Homicidal ideations; E78.5 Hyperlipidemia, unspecified; F12.10 Cannabis abuse, uncomplicated; F41.9 Anxiety disorder, unspecified; F17.210 Nicotine dependence, cigarettes, uncomplicated; Z20.822 Contact with and (suspected) exposure to COVID-19
CPT/HCPCS: 80053; 80061; 80164; 85025; 99285; G0480; J1200; J1630; J2060; Q9967

== ENCOUNTER 2021-04-27 10:33 | Inpatient (IN) | payer MEDICAID ==
[~2021-04-27] VITALS: Ht 167.6 cm; Wt 71.7 kg
[~2021-04-27 10:33] MED LIST changes: -DIVA-112 PO; +FLUO20CA36 PO; +PROP10TA72 PO; +QUET200T30 PO; +QUET25TA36 PO; -RISP2TAB45 PO
[2021-04-27 11:19] LABS: COVID AG,FIA SOURCE NASOPHARYNGEAL
[2021-04-27] MEDS ORDERED: DiphenhydrAMINE HCL 50 MG/ML VIAL IM ONE (12:15)
[2021-04-27] MEDS ORDERED: LORazepam 2 MG/ML VIAL IM ONE (12:15)
[2021-04-27] MEDS ORDERED: HALOPERIDOL LACTATE 5 MG/ML VIAL IM ONE (12:15)
[2021-04-27] MEDS ORDERED: ZOLPIDEM TARTRATE 10 MG TABLET PO PRN (14:45)
[2021-04-27 16:55] VITALS: BP 146/99
[2021-04-27] MEDS: LORazepam 2 MG TABLET PO PRN (23:50)
[2021-04-28 04:24] VITALS: BP 141/92
[2021-04-28] MEDS: LORazepam 2 MG TABLET PO PRN (07:13)
[2021-04-28 08:11] VITALS: BP 131/79
[2021-04-28] MEDS: BICTEGRAV/EMTRICIT/TENOFOV ALA 50-200-25 MG TABLET PO SCH (08:25)
[2021-04-28] MEDS: FLUoxetine HCL 20 MG CAPSULE PO SCH (09:20)
[2021-04-28] MEDS ORDERED: MAG HYDROX/AL HYDROX/SIMETH ES 30 ML SUSPENSION UDCUP PO PRN (09:45)
[2021-04-28] MEDS ORDERED: NICOTINE 14 MG/24 HOUR PATCH TD PRN (09:45)
[2021-04-28] MEDS ORDERED: PETROLATUM,WHITE 28 GM JELLY TP PRN (09:45)
[2021-04-28] MEDS ORDERED: ALBUTEROL SULFATE HFA 90 MCG/PUFF 8 GM INHALER IH PRN (09:45)
[2021-04-28] MEDS ORDERED: ONDANSETRON HCL 4 MG TABLET PO PRN (09:45)
[2021-04-28] MEDS ORDERED: ACETAMINOPHEN 325 MG TABLET PO PRN (09:45)
[2021-04-28] MEDS ORDERED: DOCUSATE SODIUM 100 MG CAPSULE PO PRN (09:45)
[2021-04-28] MEDS ORDERED: MAGNESIUM HYDROXIDE SUSPENSION 30 ML UDCUP PO PRN (09:45)
[2021-04-28] MEDS ORDERED: GuaiFENesin/D-METHORPHAN [SUGAR-FREE] 200-20MG/10 ML SYRUP UDCUP PO PRN (09:45)
[2021-04-28] MEDS ORDERED: IBUPROFEN 400 MG TABLET PO PRN (09:45)
[2021-04-28] MEDS ORDERED: CloNIDine HCL 0.1 MG TABLET PO PRN (09:45)
[2021-04-28] MEDS ORDERED: LOPERAMIDE HCL 2 MG CAPSULE PO PRN (09:45)
[2021-04-28 16:04] VITALS: BP 106/72
[2021-04-28] MEDS: QUEtiapine FUMARATE 200 MG TABLET PO SCH (20:36)
[2021-04-29 05:23] VITALS: BP 124/79
[2021-04-29] MEDS: HALOPERIDOL 5 MG TABLET PO PRN (06:49)
[2021-04-29] MEDS: LORazepam 2 MG TABLET PO PRN (06:49)
[2021-04-29 08:01] VITALS: BP 113/62
[2021-04-29] MEDS: FLUoxetine HCL 20 MG CAPSULE PO SCH (08:38)
[2021-04-29] MEDS: BICTEGRAV/EMTRICIT/TENOFOV ALA 50-200-25 MG TABLET PO SCH (08:38)
[2021-04-29 16:17] VITALS: BP 118/74
[2021-04-29] MEDS: QUEtiapine FUMARATE 200 MG TABLET PO SCH (20:40)
[2021-04-30 05:10] VITALS: BP 120/68
[2021-04-30] MEDS: LORazepam 2 MG TABLET PO PRN ×2 (06:53→16:27)
[2021-04-30] MEDS: HALOPERIDOL 5 MG TABLET PO PRN ×2 (06:53→16:27)
[2021-04-30] MEDS: BICTEGRAV/EMTRICIT/TENOFOV ALA 50-200-25 MG TABLET PO SCH (09:18)
[2021-04-30] MEDS: FLUoxetine HCL 20 MG CAPSULE PO SCH (09:18)
[2021-04-30 10:39] VITALS: BP 103/64
[2021-04-30 16:11] VITALS: BP 102/62
[2021-04-30] MEDS: QUEtiapine FUMARATE 200 MG TABLET PO SCH (20:07)
[2021-05-01 04:32] VITALS: BP 112/70
[2021-05-01 08:13] VITALS: BP 112/75
[2021-05-01] MEDS: FLUoxetine HCL 20 MG CAPSULE PO SCH (08:50)
[2021-05-01] MEDS: LORazepam 2 MG TABLET PO PRN (08:50)
[2021-05-01] MEDS: BICTEGRAV/EMTRICIT/TENOFOV ALA 50-200-25 MG TABLET PO SCH (08:51)
[2021-05-01] MEDS: HALOPERIDOL 5 MG TABLET PO PRN (10:40)
[2021-05-01 16:17] VITALS: BP 106/62
[2021-05-01] MEDS: QUEtiapine FUMARATE 200 MG TABLET PO SCH (20:02)
[2021-05-02] MEDS: LORazepam 2 MG TABLET PO PRN ×3 (03:58→16:27)
[2021-05-02 04:04] VITALS: BP 106/66
[2021-05-02] MEDS: BICTEGRAV/EMTRICIT/TENOFOV ALA 50-200-25 MG TABLET PO SCH (08:39)
[2021-05-02] MEDS: FLUoxetine HCL 20 MG CAPSULE PO SCH (08:39)
[2021-05-02 10:45] VITALS: BP 110/70
[2021-05-02] MEDS: HALOPERIDOL 5 MG TABLET PO PRN ×2 (11:11→16:27)
[2021-05-02 16:04] VITALS: BP 120/71
[2021-05-02] MEDS: QUEtiapine FUMARATE 200 MG TABLET PO SCH (20:06)
[2021-05-03 05:26] VITALS: BP 110/71
[2021-05-03] MEDS: LORazepam 2 MG TABLET PO PRN (05:57)
[2021-05-03] MEDS: BICTEGRAV/EMTRICIT/TENOFOV ALA 50-200-25 MG TABLET PO SCH (08:34)
[2021-05-03] MEDS: FLUoxetine HCL 20 MG CAPSULE PO SCH (08:35)
[2021-05-03] MEDS ORDERED: QUET200T30 PO (10:25)
[2021-05-03] MEDS ORDERED: PROZ20 PO (10:25)
== END 2021-05-03 12:10 | disposition home or self-care (01) | DRG 750 ==
LOC: EMS 10:38 → B3A 14:48
PROVIDERS: ADMIT Psychiatry & Neurology Psychiatry; ATTEND Psychiatry & Neurology Psychiatry
DX: F25.0 Schizoaffective disorder, bipolar type (principal); Z91.14 Patient's other noncompliance with medication regimen; F15.10 Other stimulant abuse, uncomplicated; Z20.822 Contact with and (suspected) exposure to COVID-19; F17.210 Nicotine dependence, cigarettes, uncomplicated; Z71.6 Tobacco abuse counseling
CPT/HCPCS: 99285; Q9967